=== PATIENT | male | born 1990 | race Caucasian/White ===

== ENCOUNTER 2022-01-06 06:51 | Day surgery (SDC) | payer OTHER ==
[~2022-01-06] VITALS: Ht 185.4 cm; Wt 136.3 kg
[~2022-01-06 06:51] MED LIST: RINGERS SOLUTION,LACTATED 1,000 ML IV ONE
[2022-01-06] MEDS ORDERED: ALPR0.5T8 PO (07:39)
[2022-01-06] MEDS ORDERED: AMPICILLIN SODIUM 2 GM/NS 100 ML IV ONE (07:45)
[2022-01-06] MEDS ORDERED: MIDAZOLAM HCL 5 MG/ML VIAL ONE (08:03)
[2022-01-06] MEDS ORDERED: RINGERS SOLUTION,LACTATED 1,000 ML IV ONE (08:05)
[2022-01-06 08:28] LABS: COVID AG,FIA SOURCE NASOPHARYNGEAL
[2022-01-06] MEDS ORDERED: OXYMETAZOLINE HCL 0.05% 15 ML NASAL SPRAY NASAL ONE (08:32)
[2022-01-06] MEDS ORDERED: INSULIN LISPRO 100 UNITS/ML SQ ONE (08:40)
[2022-01-06 08:51] LABS: GLUCOMETER DEV NAME(LOC) SDS.; GLUCOSE,POINT OF CARE 315 MG/DL (70-110)
[2022-01-06 08:51] LABS: BASOPHILS % (AUTO) 0.8 % (0.0-2.0); EOSINOPHILS % (AUTO) 1.1 % (1.0-6.0); HEMATOCRIT 43.8 % (41-53); HEMOGLOBIN 15.2 g/dL (13.5-17.5); LYMPHOCYTES # (AUTO) 2.3 K/uL (1.0-4.8); LYMPHOCYTES % (AUTO) 28.7 % (22.0-44.0); MEAN CORPUSCULAR HEMOGLOBIN 26.5 pg (26.0-34.0); MEAN CORPUSCULAR HGB CONC 34.7 G/dL (31.0-37.0); MEAN CORPUSCULAR VOLUME 76 fL (80-100); MONOCYTES # (AUTO) 0.5 K/uL (0.1-1.0); MONOCYTES % (AUTO) 5.7 % (2.0-9.0); NEUTROPHILS # (AUTO) 5.1 K/uL (1.8-7.7); NEUTROPHILS % (AUTO) 63.7 % (40.0-70.0); PLATELET COUNT (AUTO) 227 K/uL (150-450); RED BLOOD CELL COUNT(AUTO) 5.73 MIL/uL (4.50-5.90); RED CELL DISTRIBUTION WIDTH 13.4 % (11.5-14.5)
[2022-01-06 08:58] LABS: ANION GAP 14 mmol/L (8-16); CARBON DIOXIDE 25 mmol/L (22-29); CHLORIDE 99 mmol/L (98-107); CREATININE 0.53 mg/dL (0.60-1.30); GLOMERULAR FILTR. RATE CALC > 60 mL/min (>60); GLUCOSE,RANDOM 320 mg/dL (70-110); POTASSIUM 4.3 mmol/L (3.5-5.1); SODIUM SERUM 138 mmol/L (136-145); UREA NITROGEN, BLOOD 8 mg/dL (7-18)
[2022-01-06 09:04] LABS: PROTHROMBIN TIME 10.5 SEC (9.4-11.6)
[2022-01-06 09:05] LABS: ALANINE AMINOTRANSFERASE 40 U/L (12-78); ALBUMIN 3.6 g/dL (3.4-5.0); ALKALINE PHOSPHATASE 71 U/L (46-116); ASPARTATE AMINOTRANSFERASE 14 U/L (15-37); BILIRUBIN,TOTAL 0.6 mg/dL (0.1-1.0); TOTAL PROTEIN, SERUM 7.7 g/dL (6.4-8.2)
[2022-01-06 09:26] LABS: GLUCOMETER DEV NAME(LOC) SDS.; GLUCOSE,POINT OF CARE 317 MG/DL (70-110)
== END 2022-01-06 10:50 | disposition home or self-care (01) ==
LOC: SURGERY 06:51
PROVIDERS: ATTEND Dentist General Practice
DX: K05.30 Chronic periodontitis, unspecified (principal); K02.9 Dental caries, unspecified; Z53.8 Procedure and treatment not carried out for other reasons; E66.9 Obesity, unspecified; E11.9 Type 2 diabetes mellitus without complications; Z79.899 Other long term (current) drug therapy; Z79.01 Long term (current) use of anticoagulants
CPT/HCPCS: 36415; 71045; 80053; 82962; 85025; 85610; 85730; 87426; 93005; C9803; J2250; J7120; J0290; J1815

== ENCOUNTER 2023-08-10 06:36 | Day surgery (SDC) | payer OTHER ==
[~2023-08-10] VITALS: Ht 185.4 cm; Wt 136.3 kg
[~2023-08-10 06:36] MED LIST changes: +ALPR-707 PO; -RINGERS SOLUTION,LACTATED 1,000 ML IV ONE
[2023-08-10] MEDS ORDERED: RINGERS SOLUTION,LACTATED 1,000 ML IV ONE ×2 (07:19→09:00)
[2023-08-10] MEDS ORDERED: LOSA1TAB42 PO (07:20)
[2023-08-10] MEDS ORDERED: LOSA-382 PO (07:22)
[2023-08-10] MEDS ORDERED: AMPICILLIN SODIUM 2 GM/NS 0 ML IV ONE (07:26)
[2023-08-10 07:55] LABS: EOSINOPHILS % (AUTO) 1.6 % (1.0-6.0); HEMATOCRIT 42.8 % (41-53); HEMOGLOBIN 14.7 g/dL (13.5-17.5); LYMPHOCYTES # (AUTO) 2.2 K/uL (1.0-4.8); LYMPHOCYTES % (AUTO) 32.6 % (22.0-44.0); MEAN CORPUSCULAR HEMOGLOBIN 27.1 pg (26.0-34.0); MEAN CORPUSCULAR HGB CONC 34.5 G/dL (31.0-37.0); MEAN CORPUSCULAR VOLUME 79 fL (80-100); MONOCYTES # (AUTO) 0.4 K/uL (0.1-1.0); MONOCYTES % (AUTO) 6.2 % (2.0-9.0); NEUTROPHILS % (AUTO) 58.6 % (40.0-70.0); PLATELET COUNT (AUTO) 193 K/uL (150-450); RED BLOOD CELL COUNT(AUTO) 5.44 MIL/uL (4.50-5.90); WHITE BLOOD COUNT (AUTO) 6.9 K/uL (4.5-11.0)
[2023-08-10 08:02] LABS: ANION GAP 10 mmol/L (8-16); CALCIUM, TOTAL 8.9 mg/dL (8.8-10.5); CARBON DIOXIDE 24 mmol/L (22-29); CHLORIDE 99 mmol/L (98-107); CREATININE 0.54 mg/dL (0.60-1.30); GLOMERULAR FILTR. RATE CALC > 60 mL/min (>60); GLUCOSE,RANDOM 311 mg/dL (70-110); POTASSIUM 4.1 mmol/L (3.5-5.1); SODIUM SERUM 133 mmol/L (136-145); UREA NITROGEN, BLOOD 14 mg/dL (7-18)
[2023-08-10 08:07] LABS: INR 0.9 (0.9-1.1); PROTHROMBIN TIME 9.7 SEC (9.4-11.6)
[2023-08-10 08:17] LABS: ALANINE AMINOTRANSFERASE 33 U/L (12-78); ALBUMIN 3.4 g/dL (3.4-5.0); ALKALINE PHOSPHATASE 76 U/L (46-116); ASPARTATE AMINOTRANSFERASE 9 U/L (15-37); BILIRUBIN,TOTAL 0.5 mg/dL (0.1-1.0); THYROID STIMULATING HORMONE 0.78 uIU/mL (0.36-3.74); TOTAL PROTEIN, SERUM 7.3 g/dL (6.4-8.2)
== END 2023-08-10 09:20 | disposition home or self-care (01) ==
LOC: SURGERY 06:36
PROVIDERS: ATTEND Dentist General Practice
DX: K05.30 Chronic periodontitis, unspecified (principal); Z53.8 Procedure and treatment not carried out for other reasons; K05.6 Periodontal disease, unspecified; F41.9 Anxiety disorder, unspecified; K59.00 Constipation, unspecified; F84.0 Autistic disorder; D50.9 Iron deficiency anemia, unspecified; I10 Essential (primary) hypertension; Z79.899 Other long term (current) drug therapy; Z98.890 Other specified postprocedural states; Z79.01 Long term (current) use of anticoagulants
CPT/HCPCS: 71045; 80053; 83036; 84443; 85025; 85610; 85730; 36415; 93005; J7120; J0290